=== PATIENT | female | born 1980 | race Asian ===

== ENCOUNTER 2025-01-19 16:29 | Emergency (ER) | payer OTHER ==
[~2025-01-19] VITALS: Ht 165.1 cm; Wt 63.6 kg
[2025-01-19 16:41] VITALS: TEMP 98.6
[2025-01-19] MEDS ORDERED: SUMA100T21 PO (16:47)
[2025-01-19] MEDS ORDERED: TOPI-97 PO (16:47)
[2025-01-19] MEDS ORDERED: MECL-302 PO ×2 (16:47→20:20)
[2025-01-19 20:41] VITALS: BP 127/76; PULSE 86; RESP 18; O2SAT 99
== END 2025-01-19 21:10 | disposition home or self-care (01) ==
LOC: EMS 16:39
DX: S09.90XA Unspecified injury of head, initial encounter (principal); G43.909 Migraine, unspecified, not intractable, without status migrainosus; Z79.899 Other long term (current) drug therapy; W22.8XXA Striking against or struck by other objects, initial encounter; Y93.89 Activity, other specified; Y92.89 Other specified places as the place of occurrence of the external cause; Y99.8 Other external cause status
CPT/HCPCS: 99282; Z7502